=== PATIENT | female | born 1980 | race Caucasian/White ===

== ENCOUNTER 2018-04-15 13:28 | Observation (INO) | payer OTHER | END 2018-04-15 16:16 | disposition home or self-care (01) | LOC: FLD 13:28 | PROVIDERS: ADMIT Obstetrics & Gynecology; ATTEND Obstetrics & Gynecology | DX: O47.9 False labor, unspecified (principal); Z3A.39 39 weeks gestation of pregnancy | CPT/HCPCS: G0378 ==

== ENCOUNTER 2018-04-16 17:42 | Inpatient (IN) | payer OTHER ==
[2018-04-16] MEDS ORDERED: fentaNYL 100 MCG/2 ML INJ IVP PRN (18:33)
[2018-04-16] MEDS ORDERED: MISOPROSTOL 200 MCG TAB PR PRN (19:03)
[2018-04-16] MEDS ORDERED: LIDOCAINE 1% 300 MG/30 ML SDV SC PRN (19:03)
[2018-04-16] MEDS ORDERED: OLIVE OIL 118 ML BTL MISC PRN (19:03)
[2018-04-16] MEDS ORDERED: TERBUTALINE SULFATE 1 MG/ML VIAL IV PRN (19:03)
[2018-04-16] MEDS ORDERED: LR 1,000 ML IV PRN (19:03)
[2018-04-16] MEDS ORDERED: EPSOM SALT 454 GM TP PRN (19:03)
[2018-04-16] MEDS ORDERED: IBUPROFEN 600 MG TAB PO PRN (19:03)
[2018-04-16] MEDS ORDERED: OXYTOCIN/RINGERS LACTATE 1,000 ML IV PRN (19:03)
[2018-04-16 19:31] LABS: PLATELET COUNT 210 10^3/uL (150-400)
[2018-04-16] MEDS ORDERED: LR 500 ML IV ONE (21:35)
[2018-04-16] MEDS ORDERED: fentaNYL 100 MCG/2 ML INJ IV ONE (21:45)
[2018-04-16] MEDS: LR 1,000 ML IV SCH (21:49)
[2018-04-16] MEDS ORDERED: MEPERIDINE 25 MG/0.5 ML AMP IVP ONE (23:57)
[2018-04-16] MEDS ORDERED: ONDANSETRON 4 MG/2 ML VIAL IVP PRN (23:58)
[2018-04-16] MEDS ORDERED: PROMETHAZINE HCL 25 MG/ML INJ IVP PRN (23:58)
[2018-04-16] MEDS ORDERED: CALCIUM CARBONATE 500 MG CHEWABLE TAB PO PRN (23:59)
[2018-04-17] MEDS ORDERED: fentaNYL 100 MCG/2 ML INJ IV ONE
[2018-04-17] MEDS ORDERED: CYCLOBENZAPRINE 10 MG TAB PO SCH (00:15)
[2018-04-17] MEDS: LR 1,000 ML IV SCH ×3 (00:40→21:16)
--- NOTE | 2018-04-17 01:56 | GHP ---
DATE OF ADMISSION: 04/16/2018 SERVICE: Obstetrics HISTORY OF PRESENT ILLNESS: The patient is a 37-year-old, G1, P0, at 39 weeks and 5 days with an est imated due date of 04/18/2018, who presented with regular painful contractions every 3-5 minutes. Th e patient had noted increased cramping and discomfort the day prior to admission with some vaginal bl eeding. She presented for observation and was not dilated and was having only minimal bloody show. The patient reports increase in her contraction strength after approximately 3:30 in the afternoon on the with significant pain in her low back as well as low abdomen. Upon initial exam when the p atient 1st presented at approximately 6 p.m., the patient was felt to be about 1 cm dilated. However , a subsequent check several hours later, the cervix was only fingertip dilated and still 50% effaced , at -2 station, very posterior and high. The patient is continuing to have quite a bit of back spas ms with the contractions and is continually in discomfort. She had some relief after IV fentanyl and tub, however, the fentanyl does not last her for any length of significant improvement. She had a 2 nd dose of 100 mcg of fentanyl after which the patient did get relief. The baby has had a category 1 tracing and we have discussed options for pain management at this point with very early labor that i s not progressing for the patient. Bag of water has been intact and the patient has been feeling goo d movement. She is not having any nausea and has been hydrating well. The patient did have a bloody show and had brown blood on the prior cervical exam. 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 COURSE: The patient has been with [facility] since 29 weeks gestation after hewitt sferring from [place]. The patient had mild anemia earlier in and was on iron. The patient had an ultrasound at 20 weeks, which revealed a small fibroid less than 2 cm anteriorly. Otherwise, the ultrasound was normal. The patient had a followup ultrasound at 32 weeks for growth estimate an d the baby was approximately the 55th percentile. The patient had a history of migraines and had 1 a t 34 weeks gestation and the patient did use some [place] for the migraine pain with the last [place] zoya roximately 2 weeks ago. 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 LABS: Maternal blood type A positive with negative antibody screen. RPR nonreactive. Rube lla immune. Hepatitis B surface antigen negative. HIV negative. Initial CBC was H and H 13 and 40, and platelets 218,000. Followup H and H in January was 11 and 35. This was stable on a hematocrit cristine wn in March that was still 35. Cystic fibrosis, SMA, fragile X was negative and the whole geneti c panel tested negative. Urine drug screen was negative. Patient is immune to varicella. Hepatitis C negative. Urinalysis was negative. Pap smear normal. Gonorrhea and chlamydia were negative. Ne gative Verifi testing as well as MSAFP. 1-hour Glucola was normal and GBS culture was negative. The patient did receive the flu vaccine April 06 and the Tdap vaccine February 25. PAST MEDICAL HISTORY: Tendency for back spasms as noted above. Patient has no history of ruptured d iscs or specific SI joint pain or generalized pain that the patient has sought out Flexeril and Speedyono pin. History of migraines on OCPs back in her late teens. HSV1 orally and occasionally uses Valtrex . History of infrequent UTIs. PAST SURGICAL HISTORY: Rhinoplasty in 2006, breast implants in 2005. ALLERGIES: The patient has no known drug allergies. CURRENT MEDICATIONS: vitamins and occasional Valtrex. Occasional Tums use for reflux. 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 The patient is a nonsmoker. No alcohol or drug use through the [facility]. FAMILY HISTORY: Significant for all 4 grandparents having colon cancer mainly in the late 80s, but m grace grandmother at the age of 72. PHYSICAL EXAMINATION: GENERAL: Upon admission, the patient is a well-developed, well-nourished whit e female in moderate discomfort with back pain. VITAL SIGNS: Revealed initial blood pressures in th e 130s over mid 80s. The patient is afebrile and other vitals are normal. See nursing documentation for full details. ABDOMEN: Moderate intensity with contractions and the uterus does relax in betwe en contractions. Back pain is mainly concentrated in the midline down in the low back. No flank yong n. heart tones reveal category 1 tracing with a baseline in the 120s with good variability and accelerations. There are no decelerations noted. Contraction monitor does reveal the contractions approximately every 2-4 minutes apart. PELVIC: Exam was not repeated as the last check was fingerti p and 50%, -2 station. Bag of water is intact. EXTREMITIES: Nontender. ASSESSMENT: Intrauterine at 39 weeks and 5 days on admission. Early labor pattern with no cervical change at this time. We have discussed option of epidural; however, the patient is very ea rly in the process versus morphine sleep. The patient requests Demerol, reporting that this helped h er better when she had foot surgery. The patient also comments IV Demerol helps better. We will pro ceed with morphine sleep and also add Flexeril due to a strong component, I feel like the patient is having back spasms when she has the contractions. GBS culture is negative. PLAN: Hopefully, the patient will get some rest and this dysfunctional pattern will subside to retur n more effectively. Approximately 45 minutes spent [id number] with the patient and her on admission. /[id number]/MODL
[2018-04-17] MEDS ORDERED: TERBUTALINE SULFATE 1 MG/ML VIAL ONE (05:29)
[2018-04-17] MEDS ORDERED: LIDOCAINE 1% 300 MG/30 ML SDV ONE (05:29)
[2018-04-17] MEDS ORDERED: OLIVE OIL 118 ML BTL ONE (05:29)
[2018-04-17] MEDS ORDERED: AMMONIA AROMATIC 1 EACH AMP IH ONE (05:29)
[2018-04-17] MEDS ORDERED: OXYTOCIN 10 UNIT/ML VIAL ONE (05:30)
[2018-04-17] MEDS ORDERED: MISOPROSTOL 200 MCG TAB ONE (05:30)
[2018-04-17] MEDS ORDERED: PHENYLEPHRINE HCL 100 MCG/ML SYR ONE (06:08)
[2018-04-17] MEDS ORDERED: fentaNYL 2MCG/ML/BUP 0.1% RTU 100 ML BAG EP ONE (06:08)
[2018-04-17] MEDS ORDERED: BUPIVACAINE 0.25% 30 ML SDV ONE (06:08)
--- NOTE | 2018-04-17 06:46 | PREANESOB ---
Obstetric Pre-Anesthesia Info - General Info : 1 Para: 0 LEIGH: 04/18/18 Gestational Age: 39 week(s) and 5 day(s) - Info Status: Full Term - Labor Status Cervical Dilation per last OB SVE: 3 Indications for Labor Analgesia: Pain Control Labor Epidural: Yes Anesthesia Allergies/Adverse Reactions: Allergy/AdvReac Type Severity Reaction Status Date / Time No Known Allergies Allergy Unverified 04/15/18 14:05 Home Medications: Medication Instructions Recorded Vit27&Calcium/Iron/FA 1 tab PO DAILY 04/16/18 [] Visit Medications: Generic Name Dose Route Start Last Admin Trade Name Freq PRN Reason Stop Dose Admin Calcium Carbonate 500 mg 04/16/18 23:59 Tums PO 10/13/18 23:58 TID PRN Indigestion Cyclobenzaprine HCl 10 mg 04/17/18 00:15 04/17/18 00:39 Flexeril PO 10/14/18 00:14 10 mg TID KALI Administration Fentanyl 50 - 100 mcg 04/16/18 18:33 04/16/18 18:51 Sublimaze IVP 04/26/18 18:32 50 mcg ONCE PRN Administration PAIN, SEVERE Lactated Ringer's 1,000 mls @ 0 mls/hr 04/16/18 19:03 Lr IV 04/17/18 19:02 PRN PRN SEE PROTOCOL CONDITIONS Protocol Per Protocol Oxytocin/Lactated Ringer's 1,000 mls @ 125 mls/hr 04/16/18 19:03 Pitocin 20 Units/Lr (Premix) IV PRN PRN Post bleeding Lactated Ringer's 1,000 mls @ 125 mls/hr 04/16/18 21:35 04/17/18 06:18 Lr IV 10/13/18 21:34 1,000 mls CONT KALI Administration Ibuprofen 600 mg 04/16/18 19:03 Motrin PO ONCE PRN post , pain Lidocaine HCl 300 mg 04/16/18 19:03 Lidocaine Hcl 1% SC 10/13/18 19:02 ONCE PRN episiotomy Magnesium Sulfate 454 gm 04/16/18 19:03 Epsom Salt TP 10/13/18 19:02 Q1H PRN perineal discomfort Misoprostol 800 - 1,000 mcg 04/16/18 19:03 Cytotec SC ONCE PRN Vaginal Atony/Bleeding Morphine Sulfate 10 mg 04/16/18 23:54 04/17/18 00:41 Morphine IM 04/26/18 23:53 10 mg Q4HRS PRN Administration Pain, Severe Unable to Take PO [place] Oil 118 ml 04/16/18 19:03 Sweet Oil MISC 10/13/18 19:02 ONCE PRN perineal massage Ondansetron HCl 4 mg 04/16/18 23:58 Zofran IVP 10/13/18 23:57 Q4HRS PRN Nausea/Vomiting, Can't Take PO Promethazine HCl 12.5 mg 04/16/18 23:58 04/17/18 01:27 Phenergan IVP 10/13/18 23:57 12.5 mg Q6HRS PRN Administration Nausea/Vomiting, Can't Take PO Terbutaline Sulfate 0.25 mg 04/16/18 19:03 Brethine IV 10/13/18 19:02 ONCE PRN Tachysystole Discontinued Medications Generic Name Dose Route Start Last Admin Trade Name Freq PRN Reason Stop Dose Admin Ammonia (Aromatic Spirit) Confirm 04/17/18 05:29 Ammonia Aromatic Administered 04/17/18 05:30 Dose 1 each IH .STK-MED ONE Bupivacaine HCl Confirm 04/17/18 06:08 Sensorcaine 0.25% Sdv Administered 04/17/18 06:09 Dose 30 ml .ROUTE .STK-MED ONE Fentanyl 100 mcg 04/16/18 21:45 04/16/18 21:49 Sublimaze IV 04/16/18 21:46 100 mcg ONCE ONE Administration Fentanyl 100 mcg 04/17/18 00:00 04/16/18 23:27 Sublimaze IV 04/17/18 00:01 100 mcg ONCE ONE Administration Fentanyl/Bupivacaine HCl Confirm 04/17/18 06:08 Fentanyl/Bupivacaine/Ns 2 Mcg/Ml 0.1% (Premix Administered 04/17/18 06:09 Dose 100 ml EP .STK-MED ONE Lactated Ringer's 500 mls @ 0 mls/hr 04/16/18 21:35 04/16/18 22:16 Lr IV 04/16/18 21:36 Not Given ONCE ONE As Directed Lidocaine HCl Confirm 04/17/18 05:29 Lidocaine Hcl 1% Administered 04/17/18 05:30 Dose 300 mg .ROUTE .STK-MED ONE Meperidine HCl 50 mg 04/16/18 23:57 04/17/18 00:39 Demerol IVP 04/16/18 23:58 50 mg ONCE ONE Administration Misoprostol Confirm 04/17/18 05:30 Cytotec Administered 04/17/18 05:31 Dose 1,000 mcg .ROUTE .STK-MED ONE [place] Oil Confirm 04/17/18 05:29 Sweet Oil Administered 04/17/18 05:30 Dose 118 ml .ROUTE .STK-MED ONE Oxytocin Confirm 04/17/18 05:30 Pitocin Administered 04/17/18 05:31 Dose 30 unit .ROUTE .STK-MED ONE Phenylephrine HCl Confirm 04/17/18 06:08 Neosynephrine Administered 04/17/18 06:09 Dose 1,000 mcg .ROUTE .STK-MED ONE Terbutaline Sulfate Confirm 04/17/18 05:29 Brethine Administered 04/17/18 05:30 Dose 1 mg .ROUTE .STK-MED ONE - Vital Signs Height/Weight (Nursing): Height 160.02 cm Weight 72.575 kg Labs: 04/16/18 18:14 Patient ABO/Rh A POSITIVE 04/16/18 18:14
--- NOTE | 2018-04-17 06:47 | PDANEPAE ---
ANE History of Present Illness Labor ANE Past Medical History - Pulmonary History Hx Sleep Apnea: No - Chronic Pain History Chronic Pain: No ANE Review of Systems Review of Systems: ANE Patient History - Allergies Allergies/Adverse Reactions: No Known Allergies Allergy (Unverified 04/15/18 14:05) - Home Medications Home medications: home medication list seen and reviewed Home Medications: Vit27&Calcium/Iron/FA [] 1 tab PO DAILY 04/16/18 [Last Taken Unknown] - Anes Hx Anes Hx: no prior problems (No prior RA) - Smoking Hx Smoking Status: Never smoked ANE Labs/Vital Signs - Labs Result Diagrams: 04/16/18 18:14 - Vital Signs Height: 160.02 cm Weight: 72.575 kg ANE Physical Exam - Airway Neck exam: FROM Mallampati Score: Class 2 Mouth exam: normal dental/mouth exam - Pulmonary Pulmonary: no respiratory distress - Cardiovascular Cardiovascular: regular rate and rhythym - ASA Status ASA Status: II ANE Anesthesia Plan Anesthesia Plan: epidural (PCEA)
--- NOTE | 2018-04-17 06:50 | POSTANESTH ---
Post Anesthetic Evaluation Cardiovascular Status: Normal, Stable Respiratory Status: Normal, Stable Level of Consciousness/Mental Status: Can Participate in Eval Pain Control: Adequate, Prn Tx Ordered Nausea/Vomiting Control: Adequate, Prn Tx Ordered Complications Possibly Related to Anesthesia: None Noted (Good pain control. PCEA started at 10/hr + 10 ml q 10 X2)
[2018-04-17] MEDS ORDERED: LR 500 ML IV SCH (07:00)
[2018-04-17] MEDS: fentaNYL 2MCG/ML/BUP 0.1% RTU 100 ML EP SCH ×3 (07:07→23:56)
--- NOTE | 2018-04-17 07:26 | OBPROG ---
Labor Progress Note Assessment/Plan: Assessment: IUP at 39w6d early active labor comf with KARLEE GBS neg Plan: Now that comfortable, will watch for labor progress. AROM and pit prn 04/17/18 07:21 Subjective/Intrapartum Course: 04/17/18 07:26 Pt so comfortable now - slept well after morphine sleep. After awakening, the RN checked and cx was 3/80/-1. bloody show but BOWI Objective: 04/16/18 18:14 Patient ABO/Rh A POSITIVE 04/16/18 18:14 - SVE Dilation (cm): 3 Effacement (%): 80 Station: -1 Membranes: Intact - Contraction Pattern Assessment Current Contraction Pattern: Irregular (q 3-4 min) - FHR Assessment Martin FHR (bpm): 130 FHR Pattern Variability: Moderate FHR Category: 1 (GBTBV accels, no possibly early decels) - AP Antepartum Course: 04/17/18 07:32 late transfer at 29 wks, occas migraines in - used [place] sparingly. Oxytocin Orders Assessment - Pre-Induction/Augmentation Assessment Gestational Age: 39 week(s) and 5 day(s) ICD10 Worksheet Patient Problems: Problems Problem Status Onset Dysfunctional labor Acute
--- NOTE | 2018-04-17 10:24 | OBPROG ---
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 After awakening, the RN checked and cx was 3/80/-1. bloody show but BOWI 04/17/18 10:25 Pt is comfortable, s/p epidural. She was able to get some sleep. Objective: 04/16/18 18:14 Patient ABO/Rh A POSITIVE 04/16/18 18:14 - SVE Dilation (cm): 4 Effacement (%): 90 Station: -1 Membranes: AROM (small amount bloody fluid noted) Amniotic Fluid Color: Bloody - Contraction Pattern Assessment Current Contraction Pattern: Irregular (q 3-4 min) - FHR Assessment Martin FHR (bpm): 140 FHR Pattern Variability: Moderate FHR Category: 1 - Procedures Non-surgical Procedures: Amniotomy - AP Antepartum Course: 04/17/18 07:32 late transfer at 29 wks, occas migraines in - used [place] sparingly. Oxytocin Orders Assessment - Pre-Induction/Augmentation Assessment Gestational Age: 39 week(s) and 5 day(s) ICD10 Worksheet Patient Problems: Problems Problem Status Onset Dysfunctional labor Acute
[2018-04-17] MEDS ORDERED: OXYTOCIN/RINGERS LACTATE 500 ML IV SCH (11:30)
--- NOTE | 2018-04-17 12:22 | OBPROG ---
Labor Progress Note Assessment/Plan: Assessment: 37 y/o @ 38 6/7 weeks in early labor Plan: Pitocin at 4 mu/min, cont per protocol On SVE: 5-6/90/0 FHTs - Cat II tracing with intermittent early decels and variable decels; tachycardia with baseline 170's x 30 min now Pt is s/p 3 L LR and maternal Temp 99.0 Will cont to closely monitor the strip 04/17/18 12:18 Subjective/Intrapartum Course: 04/17/18 07:26 Pt so comfortable now - slept well after morphine sleep. After awakening, the RN checked and cx was 3/80/-1. bloody show but BOWI 04/17/18 10:25 Pt is comfortable, s/p epidural. She was able to get some sleep. 04/17/18 12:21 Pt is feeling some pain in lower abdomen and is pushing bolus button with relief. She has a heating pad and warm blankets on. Objective: 04/16/18 18:14 Patient ABO/Rh A POSITIVE 04/16/18 18:14 - SVE Dilation (cm): 5 (5-6) Effacement (%): 90 Station: 0 Membranes: AROM (small amount bloody fluid noted) Amniotic Fluid Color: Bloody - Contraction Pattern Assessment Current Contraction Pattern: Regular - FHR Assessment Martin FHR (bpm): 170 (baseline change from previousy 140-145 bpm) FHR Pattern Variability: Moderate FHR Category: 2 (intermittent variable decels noted) - Procedures Non-surgical Procedures: Amniotomy - AP Antepartum Course: 04/17/18 07:32 late transfer at 29 wks, occas migraines in - used [place] sparingly. Oxytocin Orders Assessment - Pre-Induction/Augmentation Assessment Gestational Age: 39 week(s) and 5 day(s) ICD10 Worksheet Patient Problems: Problems Problem Status Onset Dysfunctional labor Acute
--- NOTE | 2018-04-17 15:54 | OBPROG ---
Labor Progress Note Assessment/Plan: Assessment: 37 y/o @ 38 6/7 weeks in labor Plan: Continue current management Pitocin at 5 mu/min, cont per protocol On SVE: 6-7/100/+1 FHTs - Cat I tracing, tachycardia resolved- -reassuring Anticipate 04/17/18 15:54 Subjective/Intrapartum Course: 04/17/18 07:26 Pt so comfortable now - slept well after morphine sleep. After awakening, the RN checked and cx was 3/80/-1. bloody show but BOWI 04/17/18 10:25 Pt is comfortable, s/p epidural. She was able to get some sleep. 04/17/18 12:21 Pt is feeling some pain in lower abdomen and is pushing bolus button with relief. She has a heating pad and warm blankets on. 04/17/18 15:52 Pt doing well with no complaints. Objective: 04/16/18 18:14 Patient ABO/Rh A POSITIVE 04/16/18 18:14 - SVE Dilation (cm): 7 (6-7) Effacement (%): 100 Station: +1 Membranes: AROM (small amount bloody fluid noted) Amniotic Fluid Color: Bloody - Contraction Pattern Assessment Current Contraction Pattern: Regular (q2-4 min) - FHR Assessment Martin FHR (bpm): 150 FHR Pattern Variability: Moderate FHR Category: 1 - Procedures Non-surgical Procedures: Amniotomy - AP Antepartum Course: 04/17/18 07:32 late transfer at 29 wks, occas migraines in - used [place] sparingly. Oxytocin Orders Assessment - Pre-Induction/Augmentation Assessment Gestational Age: 39 week(s) and 5 day(s) ICD10 Worksheet Patient Problems: Problems Problem Status Onset Dysfunctional labor Acute
[2018-04-17] MEDS: ACETAMINOPHEN 325 MG TAB PO PRN ×2 (16:48→21:15)
--- NOTE | 2018-04-17 18:06 | OBPROG ---
Labor Progress Note Assessment/Plan: Assessment: 37 y/o @ 38 6/7 weeks in labor Plan: Continue current management Pitocin at 10 mu/min, cont per protocol On SVE: 7-8/100/+1 FHTs - Cat II tracing with intermittent variable decels with abdullahi down to 120 bpm Will cont to closely monitor strip Difficulty tracing ctx's per RN, requesting placement of IUPC IUPC placed and inadequate labor noted with MVUs <120 Will reassess in a few hours 04/17/18 18:12 Subjective/Intrapartum Course: 04/17/18 07:26 Pt so comfortable now - slept well after morphine sleep. After awakening, the RN checked and cx was 3/80/-1. bloody show but BOWI 04/17/18 10:25 Pt is comfortable, s/p epidural. She was able to get some sleep. 04/17/18 12:21 Pt is feeling some pain in lower abdomen and is pushing bolus button with relief. She has a heating pad and warm blankets on. 04/17/18 15:52 Pt doing well with no complaints. 04/17/18 18:06 Pt is using bolus prn, remains comfortable. She wants some crackers and broth. Objective: 04/16/18 18:14 Patient ABO/Rh A POSITIVE 04/16/18 18:14 - SVE Dilation (cm): 8 (7-8) Effacement (%): 100 Station: +1 Membranes: AROM (small amount bloody fluid noted) Amniotic Fluid Color: Bloody - Contraction Pattern Assessment Current Contraction Pattern: Regular (q2-4 min) - FHR Assessment Martin FHR (bpm): 160 FHR Pattern Variability: Moderate FHR Category: 2 (intermittent variable decels with abdullahi to 120 bpm) - Procedures Non-surgical Procedures: Amniotomy - AP Antepartum Course: 04/17/18 07:32 late transfer at 29 wks, occas migraines in - used [place] sparingly. Oxytocin Orders Assessment - Pre-Induction/Augmentation Assessment Gestational Age: 39 week(s) and 5 day(s) ICD10 Worksheet Patient Problems: Problems Problem Status Onset Dysfunctional labor Acute
--- NOTE | 2018-04-17 21:12 | OBPROG ---
Labor Progress Note Assessment/Plan: Assessment: 37 y/o @ 38 6/7 weeks in labor Plan: Continue current management Pitocin at 9 mu/min, cont per protocol On SVE: Ant lip/+1, some caput noted FHTs - Cat II tracing with intermittent variable decels, overall reassuring Will have pt in high fowlers and reassess and hopefully can start pushing 04/17/18 21:09 Subjective/Intrapartum Course: 04/17/18 07:26 Pt so comfortable now - slept well after morphine sleep. After awakening, the RN checked and cx was 3/80/-1. bloody show but BOWI 04/17/18 10:25 Pt is comfortable, s/p epidural. She was able to get some sleep. 04/17/18 12:21 Pt is feeling some pain in lower abdomen and is pushing bolus button with relief. She has a heating pad and warm blankets on. 04/17/18 15:52 Pt doing well with no complaints. 04/17/18 18:06 Pt is using bolus prn, remains comfortable. She wants some crackers and broth. 04/17/18 21:11 She is having some pain in lower abdomen. Objective: 04/16/18 18:14 Patient ABO/Rh A POSITIVE 04/16/18 18:14 - SVE Dilation (cm): 9 (Ant lip) Effacement (%): 100 Station: +1, +2 Membranes: AROM (small amount bloody fluid noted) Amniotic Fluid Color: Bloody - Contraction Pattern Assessment Current Contraction Pattern: Regular (q3-4 min) - FHR Assessment Martin FHR (bpm): 160 FHR Pattern Variability: Moderate FHR Category: 2 (Intermittent variable decels with abdullahi 110 bpm) - Procedures Non-surgical Procedures: Amniotomy - AP Antepartum Course: 04/17/18 07:32 late transfer at 29 wks, occas migraines in - used [place] sparingly. Oxytocin Orders Assessment - Pre-Induction/Augmentation Assessment Gestational Age: 39 week(s) and 5 day(s) ICD10 Worksheet Patient Problems: Problems Problem Status Onset Dysfunctional labor Acute
--- NOTE | 2018-04-17 23:23 | OBPROG ---
Labor Progress Note Assessment/Plan: Assessment: 37 y/o @ 38 6/7 weeks in labor Plan: Called into pt's room by RN re: late decels; intermittent late decels noted x 20 sec Pt examined, on SVE: complete/+1; started to push to see if any decent of head and there was none Suspect LOT at this time Will try different position changes to see if baby can turn and descend Cont oxygen Will cont to closely monitor the strip 04/17/18 23:18 Subjective/Intrapartum Course: 04/17/18 07:26 Pt so comfortable now - slept well after morphine sleep. After awakening, the RN checked and cx was 3/80/-1. bloody show but BOWI 04/17/18 10:25 Pt is comfortable, s/p epidural. She was able to get some sleep. 04/17/18 12:21 Pt is feeling some pain in lower abdomen and is pushing bolus button with relief. She has a heating pad and warm blankets on. 04/17/18 15:52 Pt doing well with no complaints. 04/17/18 18:06 Pt is using bolus prn, remains comfortable. She wants some crackers and broth. 04/17/18 21:11 She is having some pain in lower abdomen. 04/17/18 23:23 Pt has been lying on her right side, no complaints at this time. Objective: 04/16/18 18:14 Patient ABO/Rh A POSITIVE 04/16/18 18:14 - SVE Dilation (cm): 10 Effacement (%): 100 Station: +1 Membranes: AROM (small amount bloody fluid noted) Amniotic Fluid Color: Bloody - Contraction Pattern Assessment Current Contraction Pattern: Regular (q3-4 min) - FHR Assessment Martin FHR (bpm): 160 FHR Pattern Variability: Moderate FHR Category: 2 (intermittent late decels noted x 20 sec - resolved after resuscitation and pushing) - Procedures Non-surgical Procedures: Amniotomy - AP Antepartum Course: 04/17/18 07:32 late transfer at 29 wks, occas migraines in - used [place] sparingly. Oxytocin Orders Assessment - Pre-Induction/Augmentation Assessment Gestational Age: 39 week(s) and 5 day(s) ICD10 Worksheet Patient Problems: Problems Problem Status Onset Dysfunctional labor Acute
--- NOTE | 2018-04-18 03:05 | OBPROG ---
Labor Progress Note Assessment/Plan: Assessment: 37 y/o @ 38 6/7 weeks in labor Plan: Started pushing again with pt after having her labor down x 2 hours and no descent in head noted-still at +1 and mostly caput FHTs reveal decels after each ctx/push x 30 sec with abdullahi to 90 bpm Recommend proceeding with a PCS at this time secondary to arrest of descent and intol to labor Surgical consents obtained; Discussed R/B/A with pt including bleeding, infection and damage to surrounding organs Pt preolpery consented; she understands the risks of surgery and wants to proceed Abx compliance and control analyst to OR SCDs for DVT prophylaxis 04/18/18 02:48 Subjective/Intrapartum Course: 04/17/18 07:26 Pt so comfortable now - slept well after morphine sleep. After awakening, the RN checked and cx was 3/80/-1. bloody show but BOWI 04/17/18 10:25 Pt is comfortable, s/p epidural. She was able to get some sleep. 04/17/18 12:21 Pt is feeling some pain in lower abdomen and is pushing bolus button with relief. She has a heating pad and warm blankets on. 04/17/18 15:52 Pt doing well with no complaints. 04/17/18 18:06 Pt is using bolus prn, remains comfortable. She wants some crackers and broth. 04/17/18 21:11 She is having some pain in lower abdomen. 04/17/18 23:23 Pt has been lying on her right side, no complaints at this time. 04/18/18 03:05 Pt notes window on left side. Objective: 04/16/18 18:14 Patient ABO/Rh A POSITIVE 04/16/18 18:14 - SVE Dilation (cm): 10 Effacement (%): 100 Station: +1 Membranes: AROM (small amount bloody fluid noted) Amniotic Fluid Color: Bloody - Contraction Pattern Assessment Current Contraction Pattern: Regular (q3-4 min) - FHR Assessment Martin FHR (bpm): 160 FHR Pattern Variability: Moderate FHR Category: 2 (intermittent variable decels and late decels noted with each ctx during pushing with abdullahi to 90 bpm x 30 sec) - Procedures Non-surgical Procedures: Amniotomy - AP Antepartum Course: 04/17/18 07:32 late transfer at 29 wks, occas migraines in - used [place] sparingly. Oxytocin Orders Assessment - Pre-Induction/Augmentation Assessment Gestational Age: 39 week(s) and 5 day(s) ICD10 Worksheet Patient Problems: Problems Problem Status Onset Dysfunctional labor Acute
[2018-04-18] MEDS ORDERED: ceFAZolin 2 GM in D5W 100 ML IV ONE (03:30)
[2018-04-18] MEDS ORDERED: LIDO/EPI 2% **for epidural** 20 ML SDV ONE ×2 (03:36→05:33)
[2018-04-18] MEDS ORDERED: morphINE PF 5 MG/10 ML INJ ONE (03:36)
[2018-04-18] MEDS ORDERED: PROPOFOL 200 MG/20 ML VIAL ONE (04:47)
[2018-04-18] MEDS ORDERED: fentaNYL 100 MCG/2 ML INJ ONE ×2 (04:52→04:58)
[2018-04-18] MEDS ORDERED: MIDAZOLAM 2 MG/2 ML VIAL ONE (05:09)
[2018-04-18] MEDS ORDERED: KETAMINE 500 MG/10 ML VIAL ONE (05:22)
[2018-04-18] MEDS ORDERED: CHLOROPROCAINE HCL 2% 400 MG/20 ML VIAL ONE (05:33)
[2018-04-18] MEDS ORDERED: NALOXONE HCL 0.4 MG/ML INJ IVP PRN ×2 (06:03→06:12)
[2018-04-18] MEDS ORDERED: HYDROmorphONE/DILAUDID 1 MG/ML INJ IVP PRN (06:03)
[2018-04-18] MEDS ORDERED: PHENYLEPHRINE HCL 100 MCG/ML SYR IVP PRN (06:03)
[2018-04-18] MEDS ORDERED: fentaNYL 100 MCG/2 ML INJ IVP PRN (06:03)
[2018-04-18] MEDS ORDERED: BISACODYL 10 MG SUPP PR PRN (06:06)
[2018-04-18] MEDS ORDERED: PROMETHAZINE HCL 25 MG/ML INJ IVP PRN (06:06)
[2018-04-18] MEDS ORDERED: POLYETHYLENE GLYCOL 3350 17 GM PKT PO PRN (06:06)
[2018-04-18] MEDS ORDERED: DOCUSATE SODIUM 100 MG CAP PO PRN (06:06)
[2018-04-18] MEDS ORDERED: MAGNESIUM HYDROXIDE 30 ML UDCUP PO PRN (06:06)
[2018-04-18] MEDS ORDERED: SIMETHICONE 80 MG TAB CHEW PO PRN (06:06)
[2018-04-18] MEDS ORDERED: LACTULOSE 20 GM/30 ML UDCUP PO PRN (06:06)
[2018-04-18] MEDS ORDERED: HYDROmorphONE/DILAUDID 6 MG/30 ML PCA IV PRN (06:12)
[2018-04-18] MEDS ORDERED: diphenhydrAMINE 25 MG CAP PO PRN (06:12)
--- NOTE | 2018-04-18 06:17 | OBDEL ---
Info Type: Primary Presentation at Delivery: Vertex (ROT) L&D Analgesia/Anesthesia Type: Epidural GBS+: No Intrapartum Medications: Generic Name Dose Route Start Last Admin Trade Name Uday PRN Reason Stop Dose Admin Acetaminophen 650 mg 04/17/18 16:39 04/17/18 21:15 Tylenol PO 10/14/18 16:38 650 mg Q4HRS PRN Administration Pain, Mild/Fever, Can Take PO Fentanyl 50 - 100 mcg 04/16/18 18:33 04/16/18 18:51 Sublimaze IVP 04/26/18 18:32 50 mcg ONCE PRN Administration PAIN, SEVERE Lactated Ringer's 1,000 mls @ 125 mls/hr 04/16/18 21:35 04/17/18 21:16 Lr IV 10/13/18 21:34 1,000 mls CONT KALI Administration Fentanyl/Bupivacaine HCl 100 mls @ 0 mls/hr 04/17/18 07:00 04/17/18 23:56 Fentanyl/Bupivacaine/Ns 2 Mcg/Ml 0.1% (Premix EP 04/27/18 06:59 100 mls CONT KALI Administration Protocol As Directed Morphine Sulfate 10 mg 04/16/18 23:54 04/17/18 00:41 Morphine IM 04/26/18 23:53 10 mg Q4HRS PRN Administration Pain, Severe Unable to Take PO Promethazine HCl 12.5 mg 04/16/18 23:58 04/17/18 01:27 Phenergan IVP 10/13/18 23:57 12.5 mg Q6HRS PRN Administration Nausea/Vomiting, Can't Take PO Discontinued Medications Generic Name Dose Route Start Last Admin Trade Name Uday PRN Reason Stop Dose Admin Cyclobenzaprine HCl 10 mg 04/17/18 00:15 04/17/18 00:39 Flexeril PO 10/14/18 00:14 10 mg TID KALI Administration Fentanyl 100 mcg 04/16/18 21:45 04/16/18 21:49 Sublimaze IV 04/16/18 21:46 100 mcg ONCE ONE Administration Fentanyl 100 mcg 04/17/18 00:00 04/16/18 23:27 Sublimaze IV 04/17/18 00:01 100 mcg ONCE ONE Administration Lactated Ringer's 500 mls @ 0 mls/hr 04/16/18 21:35 04/16/18 22:16 Lr IV 04/16/18 21:36 Not Given ONCE ONE As Directed Cefazolin Sodium 2 gm/ 100 mls @ 200 mls/hr 04/18/18 03:30 04/18/18 03:40 Dextrose IV 04/18/18 03:59 100 mls ONCALL ONE Administration Meperidine HCl 50 mg 04/16/18 23:57 04/17/18 00:39 Demerol IVP 04/16/18 23:58 50 mg ONCE ONE Administration - Care Provider Air Duct Mechanic/PHOTO STUDIO ASSISTANT: Velvet Gonzales - Hospital Course Intrapartum: 04/17/18 07:26 Pt so comfortable now - slept well after morphine sleep. After awakening, the RN checked and cx was 3/80/-1. bloody show but BOWI 04/17/18 10:25 Pt is comfortable, s/p epidural. She was able to get some sleep. 04/17/18 12:21 Pt is feeling some pain in lower abdomen and is pushing bolus button with relief. She has a heating pad and warm blankets on. 04/17/18 15:52 Pt doing well with no complaints. 04/17/18 18:06 Pt is using bolus prn, remains comfortable. She wants some crackers and broth. 04/17/18 21:11 She is having some pain in lower abdomen. 04/17/18 23:23 Pt has been lying on her right side, no complaints at this time. 04/18/18 03:05 Pt notes window on left side. Indications for Delivery: Spontaneous Labor (Prodromal labor) Vaginal Delivery - Labor and Delivery Onset of Contractions Date: 04/16/18 Onset of Contractions Time: 15:00 Amniotic Fluid Color: Bloody Non-surgical Procedures: Amniotomy Cord Gases: Cord Gases Cord Blood PCO2 TNP 04/18/18 05:00 Cord Base Excess TNP 04/18/18 05:00 Cord ABG pH TNP 04/18/18 05:00 Cord VBG pH 7.32 (7.20-7.42) 04/18/18 05:00 Operative Report - Delivery Pre-op Diagnoses: IUP @ 40 weeks who presents with prodromal labor and then arrest of descent and intolerance to labor Post-op Diagnoses: IUP @ 40 weeks who presents with prodromal labor and then arrest of descent and intolerance to labor History of Prior Section: No Number of Prior Sections: 0 Nulliparous Prior to Delivery: Yes Indications for Current Section: Arrest of Descent, Non-reas. Status Procedure: Unscheduled, Low Transverse Surgeon: Cadence Pearce Batch Freezer Operator: Kim Ewing Anesthesiologist: Kenna Demarco Complications: None Findings: A viable male born at 0450 in ROT position with 8 and 9 Apgars. There was some defficulty in delivering the head secondary to being wedges inside the pelvis. Cord clamping delayed x 30 sec and then clamped x 2 and cut. Infant to waiting PHOTO STUDIO ASSISTANT. Cord gases as well as cord blood obtained. Placenta delivered intact with 3-vc. Grossly normal appearing tubes and ovaries b/l. Bladder was noted to be full and not decompressing at the beginning of the case ; ? cid drainage. Intraoperative consult with Dr. Valenzuela was called. She scrubbed into the case and evaluated the bladder and no lacs/tears or weakness in its integrity was noted. After baby boy's head was delivered, the bladder started to decompress. Blood-tinged urine was noted at the beginning of the case and then became clear, but concentrated throughout the case. Dr. Valenzuela to dictate her portion of the case. Specimen(s)/Path: Other (Specify) (none) IV Fluid (ml): 1,900 EBL: 800 cc UO: 75 cc concentrated urine Cord Gases: Cord Gases Cord Blood PCO2 TNP 04/18/18 05:00 Cord Base Excess TNP 04/18/18 05:00 Cord ABG pH TNP 04/18/18 05:00 Cord VBG pH 7.32 (7.20-7.42) 04/18/18 05:00 [place] Data LEIGH: 04/18/18 Gestational Age: 40 week(s) and 0 day(s) Martin Delivery Date: 04/18/18 Delivery Time: 04:50 Sex of : Male Score (1 Min): 8 Score (5 Min): 9 ICD10 Worksheet Patient Problems: Problems Problem Status Onset Arrest of descent, delivered, current hospitalization Acute Dysfunctional labor Acute S/P primary low transverse Acute
--- NOTE | 2018-04-18 06:28 | GOP ---
DATE OF OPERATION: 04/17/2018 SURGEON: Shirley Gomez MD ANESTHESIA: Epidural. ANESTHESIOLOGIST: Dr. Kenna Demarco. PREOPERATIVE DIAGNOSIS: Concern for bladder injury. POSTOPERATIVE DIAGNOSIS: Concern for bladder injury. PROCEDURE PERFORMED: Intraoperative consult. FINDINGS: When I arrived into the operating room, the bladder was in the field and there was not a good plane between the uterus and the bladder. DESCRIPTION OF PROCEDURE: The patient had been laboring and then a was recommended. After the skin incision was made, I was called into the operating room to look at the plane between the bladder and the uterus. It appeared that the bladder was full and in the field. There was not a good plane between the bladder and the uterus. Decision was made to make an incision on the uterus and to deliver the baby. After this was performed and placenta delivered, hemostasis was achieved. The uterus was closed. After the baby was delivered, the bladder had decompressed significantly with return of clear yellow urine. The plane in the vesicouterine pouch was more clear. The peritoneum was torn. I did not see the actual layers/ muscle of the bladder. There did not appear to be a urinary leak. I took Monocryl and tacked down the peritoneum that had been torn in this area. I exited the operating room suite. /[id number]/MODL MTDD
[2018-04-18] MEDS: IBUPROFEN 600 MG TAB PO SCH ×3 (07:45→18:54)
--- NOTE | 2018-04-18 07:52 | GOP ---
DATE OF OPERATION: 04/18/2018 SURGEON: Cadence Pearce DO ROAD MACHINERY INSPECTOR: KETAN Novak. ANESTHESIA: Epidural. ANESTHESIOLOGIST: Dr. Demarco. PREOPERATIVE DIAGNOSIS: Intrauterine at 40 weeks with arrest of descent and intolerance to labor. POSTOPERATIVE DIAGNOSIS: Again, intrauterine at 40 weeks with arrest of descent and intolerance to labor. PROCEDURE PERFORMED: Primary low-transverse section. FINDINGS: A viable male born at 0050 in ROT position with 8 and 9 ' s. There was some difficulty delivering the head secondary to being wedged inside the pelvis. Cord clamping was delayed x30 seconds then clamped x2 and cut. handed to [employer]. Cord gases as well as cord blood were obtained. Placenta delivered manually with 3-vessel cord. Grossly normal- appearing uterus, tubes and ovaries bilaterally. At the beginning of the procedure, the bladder noted to be full and not decompressing despite a icd in place. There was question to whether there was a bladder injury secondary to blood-tinged urine noted in the cid. Intraoperative consult with Dr. Gomez was called. She scrubbed into the case, and evaluated the bladder. There were no lacerations or tears or weakness and its integrity and no leakage of urine in the field. After baby boy's head was delivered the bladder started to decompress and clear urine was noted in the cid. Dr. Gomez will be dictating her portion of the case. SPECIMENS: None. ESTIMATED BLOOD LOSS: 800 cc. INDICATIONS: The patient is a 37-year-old 1, para 0, at 38 6/7 weeks who presented in prodromal labor at 1 cm with uncontrollable back spasm and pain with contractions. She received morphine, Flexeril, Fentanyl and finally got an epidural. The patient progressed to 3 cm in the morning and was started on Pitocin and AROM with blood tinged amniotic fluid. There were bouts of tachycardia noted, but overall strip reassuring. Patient eventually got to 10 cm /+1, pushed for about 30 minutes or so with no descent of head. The patient then labored down for 2 hours. We started pushing again and minimal descent of head noted and heart decelerations were noted after each contraction during pushing for 30 seconds with with slow return to baseline. Discussed proceeding to the operating room for a primary secondary to arrest of descent, and intolerance to labor. Discussed the procedure, its risks, benefits, alternatives including bleeding, infection, and damage to surrounding organs. Patient understands all risks at this time and wants to proceed with surgery. She was concerned about the scar, and was apprehensive at first, but finally agreed to surgery. DESCRIPTION OF PROCEDURE: The patient was taken to the operating room where her epidural was re-bolused. She was then placed in the dorsal supine position with a leftward tilt. The patient was prepped and draped in normal sterile fashion and a Cid catheter was placed at this time. A WHO time-out was performed. 2 g of Ancef was given on-call to the OR. Incision was then made in the skin 2 cm above the pubic symphysis and carried down to the fascia with the Bovie. Fascia was then incised in midline and the incision was then extended laterally with Rodriguez scissors. The fascia was then grasped and elevated and the rectus muscles were dissected away sharply both inferiorly and superiorly with curved Rodriguez scissors. The rectus muscle was then in the midline. Peritoneum was entered bluntly. At this time, we noticed a full bladder, and was unable to place the bladder blade. It was difficult creating a bladder flap secondary to its close proximity to the lower uterine segment. There was noted to be blood-tinged urine in the cid at this time. Intraoperative consult with Dr. Shirley Gomez was called at this time for possible bladder injury. Dt. Gomez scrubbed into the case, and after evaluating anatomy and bladder, no tears or lacerations noted in the bladder; just some torn peritoneum. A hysterotomy was then made in lower uterine segment, and taken down sharply until there was release of clear stained amniotic fluid. Hysterotomy was extended caudad and cephalad in a blunt fashion. vertex was difficult to deliver due to being wedged in the pelvis, it was finally able to be delivered out of the pelvis. No nuchal cord was noted. The rest of the body was delivered without difficulty. Cord clamping was delayed x30 seconds. The cord was then clamped x2 and cut. handed to [employer]. Cord gases as well as cord blood was obtained. The placenta was then delivered manually intact with a 3- vessel cord. The uterus was then exteriorized and cleared of all clots and debris. Hysterotomy was then closed in a running locked fashion with 0 Vicryl and a 2nd imbricating layer with 0 Vicryl was placed. Hemostasis was noted. Cautery was used to obtain excellent hemostasis for any remaining small bleeders. The uterus was then placed back inside the abdomen. The gutters were cleared of all clots and debris. We visualized the bladder again, which seemed to decompress as soon as delivery of the head. The uterine incision was then inspected again. There was some oozing noted; so at this time , Mariza was placed on the uterine incision and hemostasis was achieved. The rectus muscles were then reapproximated using 2-0 Vicryl. The fascia was then closed with 0 Vicryl in a running fashion. The Hussain fascia was then closed with 3-0 Vicryl in a running fashion. The skin was then closed with 4-0 Vicryl. The patient tolerated the procedure well. There were no complications. Sponge, lap, and needle counts were correct x2. Patient was then taken to the recovery room in stable condition. IV FLUIDS: 1900 cc LR. URINE OUTPUT: 75 cc of concentrated urine. /[id number]/MODL MTDD
[2018-04-18] MEDS: KETOROLAC 30 MG/1 ML SDV IVP PRN ×3 (10:15→22:08)
[2018-04-18] MEDS: LR 1,000 ML IV SCH (10:19)
[2018-04-18] MEDS: HYDROCODONE/APAP 5/325 TAB PO PRN ×3 (14:03→22:09)
[2018-04-18] MEDS: SENNOSIDES/DOCUSATE SODIUM TAB PO SCH ×2 (18:55→22:08)
[2018-04-19] MEDS: IBUPROFEN 600 MG TAB PO SCH ×4 (02:07→18:57)
[2018-04-19] MEDS: HYDROCODONE/APAP 5/325 TAB PO PRN ×2 (02:30→06:40)
[2018-04-19] MEDS: KETOROLAC 30 MG/1 ML SDV IVP PRN (06:03)
--- NOTE | 2018-04-19 09:46 | OBPP ---
Progress Note Assessment/Plan: Assessment:37 G1 now P1, POD#1 s/p primary LTCS 2/2 arrest of descent and intolerance of labor - doing well, ambulatory, good urine output, pain well controlled. Plan: Continue routine post op cares. Encourage ambulation. Monitor voiding. Will change to scheduled ibuprofen and acetominophen and prn oxycodone IR for breakthrough pain. Long discussion about limiting narcotic use to only as needed. 04/19/18 10:53 Subjective/ Course: Pt doing well. Lots of questions. Has been ambulating without lightheadedness or dizziness. Had a gush of blood when got up out of bed about an hour ago, but min bleeding since. going well. Nikhil reg diet. + flatus. No nausea. 04/19/18 11:06 Objective: 04/19/18 06:45 Patient ABO/Rh A POSITIVE 04/16/18 18:14 Temp Pulse Resp BP Pulse Ox 36.6 C 88 16 112/69 94 04/19/18 03:41 04/19/18 03:41 04/19/18 03:41 04/19/18 03:41 04/19/18 03:41 gen - pleasant female, NAD, moving slowly but well CV - RRR chest - CTAB abd - soft, +BS, fundus firm at umbilicus dressing - C/D/I ext - trace edema, no calf tenderness, neg zeina's BLE shannon pad - small amount of blood staining over the past hour Uterine Position/Fundal Height: At Umbilicus Uterine Tone: Firm
[2018-04-19] MEDS: ACETAMINOPHEN 500 MG TAB PO PRN ×2 (11:13→17:18)
[2018-04-19] MEDS: FERROUS SULFATE 140 MG TAB.ER PO SCH (11:13)
[2018-04-19] MEDS: SENNOSIDES/DOCUSATE SODIUM TAB PO SCH ×2 (11:15→22:13)
[2018-04-19] MEDS: oxyCODONE IR 5 MG TAB PO PRN ×2 (16:50→22:13)
[2018-04-20] MEDS: IBUPROFEN 600 MG TAB PO SCH ×4 (01:07→22:32)
[2018-04-20] MEDS: ACETAMINOPHEN 500 MG TAB PO PRN ×2 (01:07→18:36)
[2018-04-20] MEDS: oxyCODONE IR 5 MG TAB PO PRN ×5 (02:45→22:33)
--- NOTE | 2018-04-20 09:22 | OBPP ---
Progress Note Assessment/Plan: Assessment: 1) s/p PCS secondary to arrest of descent and intolerance to labor POD # 2 - pt is stable 2) Anemia - pt is asymptomatic Plan: Continue routine post-op care Encourage ambulation Increase po fluids Cont iron and colace assistance as needed Plan for d/c home in 24-48 hours 04/20/18 09:18 Subjective/ Course: Pt doing well. Lots of questions. Has been ambulating without lightheadedness or dizziness. Had a gush of blood when got up out of bed about an hour ago, but min bleeding since. going well. Romain reg diet. + flatus. No nausea. 04/19/18 11:06 04/20/18 09:22 Pt seen and examined. Doing well, with no complaints. Just had 2 hours of sleep. Pain is overall well controlled with po meds. Pt is OOB, romain regular diet , voiding without difficulty and passing flatus. Very small BM noted. Mod lochia. Denies any f/c/n/v/CP or SOB. Denies any dizziness when OOB. BF is going well so far, baby has a good latch. Objective: 04/19/18 06:45 Patient ABO/Rh A POSITIVE 04/16/18 18:14 Temp Pulse Resp BP Pulse Ox 36.3 C 92 18 123/67 H 96 04/19/18 21:00 04/19/18 21:00 04/19/18 21:00 04/19/18 21:00 04/19/18 21:00 Uterine Position/Fundal Height: Umbilicus -2 Uterine Tone: Firm Physical Exam - Physical Exam General Appearance: WD/WN, alert, no apparent distress Respiratory: lungs clear, normal breath sounds Cardiac/Chest: regular rate, rhythm Abdomen: normal bowel sounds, non-tender, soft, flatus (+), incision (C/D/I, well approximated) Extremities: non-tender, normal inspection Skin: normal color, warm/dry Neuro/Psych: alert, normal mood/affect, oriented x 3
[2018-04-20] MEDS: FERROUS SULFATE 140 MG TAB.ER PO SCH (10:00)
[2018-04-20] MEDS: SENNOSIDES/DOCUSATE SODIUM TAB PO SCH ×2 (10:00→22:32)
[2018-04-21] MEDS: oxyCODONE IR 5 MG TAB PO PRN ×5 (02:43→22:16)
[2018-04-21] MEDS: IBUPROFEN 600 MG TAB PO SCH ×4 (05:47→18:44)
[2018-04-21] MEDS: SENNOSIDES/DOCUSATE SODIUM TAB PO SCH ×2 (07:51→22:16)
[2018-04-21] MEDS: FERROUS SULFATE 140 MG TAB.ER PO SCH (07:52)
[2018-04-21] MEDS: ACETAMINOPHEN 500 MG TAB PO PRN (08:01)
--- NOTE | 2018-04-21 13:58 | OBPP ---
Progress Note Assessment/Plan: Assessment: POD 3 s/p primary c/s anemia on iron Plan: routine care 04/17/18 07:21 04/21/18 13:53 Subjective/ Course: Pt doing well. Lots of questions. Has been ambulating without lightheadedness or dizziness. Had a gush of blood when got up out of bed about an hour ago, but min bleeding since. going well. Romain reg diet. + flatus. No nausea. 04/19/18 11:06 04/20/18 09:22 Pt seen and examined. Doing well, with no complaints. Just had 2 hours of sleep. Pain is overall well controlled with po meds. Pt is OOB, romain regular diet , voiding without difficulty and passing flatus. Very small BM noted. Mod lochia. Denies any f/c/n/v/CP or SOB. Denies any dizziness when OOB. BF is going well so far, baby has a good latch. 04/21/18 13:55 Pt doing well. Not getting much sleep - working on BF. Also pumping and feeling some milk starting to come in. Pain controlled with ibu and oxy -2 q 4 hrs. Rec maximizing tylenol and trying to decrease oxy. Minimal hard BM today and feeling more bloated. urinating fine. bld is light. Needs to hydrate more - thinks only about 1 liter today so far. Objective: 04/19/18 06:45 Patient ABO/Rh A POSITIVE 04/16/18 18:14 Temp Pulse Resp BP Pulse Ox 36.6 C 84 16 125/75 H 97 04/21/18 09:56 04/21/18 09:56 04/21/18 09:56 04/21/18 09:56 04/21/18 09:56 Uterine Position/Fundal Height: Umbilicus -1 Uterine Tone: Firm Physical Exam - Physical Exam Abdomen: non-tender (approp post op tenderness), soft, incision (CDI), other ( FF at umb-1) Extremities: non-tender, pedal edema (moderate) Skin: normal color, warm/dry Neuro/Psych: alert, normal mood/affect
[2018-04-21] MEDS: ACETAMINOPHEN 500 MG TAB PO SCH ×2 (14:16→22:15)
[2018-04-21] MEDS: valACYclovir 500 MG TAB PO PRN (16:37)
[2018-04-22] MEDS: IBUPROFEN 600 MG TAB PO SCH ×2 (00:51→10:18)
[2018-04-22] MEDS: oxyCODONE IR 5 MG TAB PO PRN ×2 (05:19→10:20)
[2018-04-22] MEDS: valACYclovir 500 MG TAB PO PRN (05:19)
[2018-04-22] MEDS: ACETAMINOPHEN 500 MG TAB PO SCH ×2 (05:24→12:02)
--- NOTE | 2018-04-22 10:49 | OBPP ---
Progress Note Assessment/Plan: Assessment: Plan: Subjective/ Course: Pt doing well. Lots of questions. Has been ambulating without lightheadedness or dizziness. Had a gush of blood when got up out of bed about an hour ago, but min bleeding since. going well. Romain reg diet. + flatus. No nausea. 04/19/18 11:06 04/20/18 09:22 Pt seen and examined. Doing well, with no complaints. Just had 2 hours of sleep. Pain is overall well controlled with po meds. Pt is OOB, romain regular diet , voiding without difficulty and passing flatus. Very small BM noted. Mod lochia. Denies any f/c/n/v/CP or SOB. Denies any dizziness when OOB. BF is going well so far, baby has a good latch. 04/21/18 13:55 Pt doing well. Not getting much sleep - working on BF. Also pumping and feeling some milk starting to come in. Pain controlled with ibu and oxy -2 q 4 hrs. Rec maximizing tylenol and trying to decrease oxy. Minimal hard BM today and feeling more bloated. urinating fine. bld is light. Needs to hydrate more - thinks only about 1 liter today so far. Objective: 04/19/18 06:45 Patient ABO/Rh A POSITIVE 04/16/18 18:14 Temp Pulse Resp BP Pulse Ox 36.6 C 103 H 16 123/81 H 98 04/22/18 00:52 04/22/18 00:52 04/22/18 00:52 04/22/18 00:52 04/22/18 00:52
--- NOTE | 2018-04-22 10:50 | OBGCSDC ---
General Delivery Information - General Info : 1 Para: 1 Abortions: 0 Type: Primary L&D Analgesia/Anesthesia Type: Epidural, IV Narcotics Admission Date: 04/16/18 Labs: Patient ABO/Rh A POSITIVE 04/16/18 18:14 Hct 27.3 % (38.0-47.0) L 04/19/18 06:45 - Hospital Course Antepartum: 04/17/18 07:32 late transfer at 29 wks, occas migraines in - used [place] sparingly. Intrapartum: 04/17/18 07:26 Pt so comfortable now - slept well after morphine sleep. After awakening, the RN checked and cx was 3/80/-1. bloody show but BOWI 04/17/18 10:25 Pt is comfortable, s/p epidural. She was able to get some sleep. 04/17/18 12:21 Pt is feeling some pain in lower abdomen and is pushing bolus button with relief. She has a heating pad and warm blankets on. 04/17/18 15:52 Pt doing well with no complaints. 04/17/18 18:06 Pt is using bolus prn, remains comfortable. She wants some crackers and broth. 04/17/18 21:11 She is having some pain in lower abdomen. 04/17/18 23:23 Pt has been lying on her right side, no complaints at this time. 04/18/18 03:05 Pt notes window on left side. : Pt doing well. Lots of questions. Has been ambulating without lightheadedness or dizziness. Had a gush of blood when got up out of bed about an hour ago, but min bleeding since. going well. Nikhil reg diet. + flatus. No nausea. 04/19/18 11:06 04/20/18 09:22 Pt seen and examined. Doing well, with no complaints. Just had 2 hours of sleep. Pain is overall well controlled with po meds. Pt is OOB, nikhil regular diet , voiding without difficulty and passing flatus. Very small BM noted. Mod lochia. Denies any f/c/n/v/CP or SOB. Denies any dizziness when OOB. BF is going well so far, baby has a good latch. 04/21/18 13:55 Pt doing well. Not getting much sleep - working on BF. Also pumping and feeling some milk starting to come in. Pain controlled with ibu and oxy -2 q 4 hrs. Rec maximizing tylenol and trying to decrease oxy. Minimal hard BM today and feeling more bloated. urinating fine. bld is light. Needs to hydrate more - thinks only about 1 liter today so far. Vaginal - Diagnosis Amniotic Fluid Color: Bloody - Procedures Non-surgical Procedures: Amniotomy - Delivery Providers Surgeon: Cadence Pearce Hose Turner: Kim Ewing Anesthesiologist: Kenna Demarco - Delivery Number of Prior Sections: 0 Indications for Current Section: Arrest of Descent, Non-reas. Status Non-surgical Procedures: Amniotomy Surgical Procedures: Unscheduled, Low Transverse Intra-op Complications: None EBL: 800 cc UO: 75 cc concentrated urine Data LEIGH: 04/18/18 Gestational Age: 40 week(s) and 4 day(s) Martin Delivery Date: 04/18/18 Delivery Time: 04:50 Sex of : Male [place] Weight (gm): 3160 kg Score (1 Min): 8 Score (5 Min): 9
[2018-04-22 15:06] VITALS: BP 119/75
== END 2018-04-22 14:00 | disposition home or self-care (01) | DRG 788 ==
LOC: FLD 17:42 → OBSVTOIN 17:42 → FOB 04-18 11:16
PROVIDERS: ADMIT Obstetrics & Gynecology; ATTEND Obstetrics & Gynecology
PROC: 10D00Z1 Extraction of Products of Conception, Low, Open Approach (ICD-10-PCS; principal; 2018-04-18)
DX: O32.4XX0 Maternal care for high head at term, not applicable or unspecified (principal); O76 Abnormality in fetal heart rate and rhythm complicating labor and delivery; O90.81 Anemia of the puerperium; O26.893 Other specified pregnancy related conditions, third trimester; M62.830 Muscle spasm of back; Z98.82 Breast implant status; Z3A.40 40 weeks gestation of pregnancy; Z37.0 Single live birth
CPT/HCPCS: J0690; J1170; J1885; J2175; J2250; J2270; J2274; J2370; J2400; J2550; J2590; J2704; J3010; J3105